=== PATIENT | female | born 1975 | race Caucasian/White ===

== ENCOUNTER 2016-07-11 15:13 | Emergency (ER) | payer OTHER ==
[~2016-07-11] VITALS: Ht 147.3 cm; Wt 280.0 kg
[~2016-07-11 15:13] MED LIST: ANTIVERT25 MG PO; ASPIR-LOW81 M1 PO; ASPIRIN EC325 MG PO; BACTRIM,SEPT1 TABLET PO; CIPRO500 MG PO; CLEOCIN300 MG PO; COLACE100 MG PO; CRESTOR10 MG PO; CYMBAL PO; CYMBALTA60 MG PO; ENALAPRIL-HCTZ1 EACH PO; ESCITALOPRAM OX10 MG PO; FIORICET 50-301 EACH PO; FIORICET,ESG1 TABLET PO; FLONASE16 G1 BOTH NARES; Fioricet,Esgic,Repan PO; HYDROCHLOROTH12.5 M3 PO; KLONOPIN0.5 M1 PO; KLONOPIN1 MG PO; LAMISIL250 MG PO; LASIX PO; LIDOCAINE20 MG/1 M5 MM; LO-DOSE ASPIRIN81 M2 PO; LOPRESSOR25 MG PO; LORTAB 5-325 M1 EACH PO; Lovaza PO; MEDROL DOSEPAK4 MG PO; METOPROLOL SUCC25 MG PO; MIRALAX17 GM PO; MOBIC15 MG PO; MONTELUKAST SOD10 MG PO; MOTRIN600 MG PO; MOTRIN800 MG PO; NAPROSYN500 MG PO; NAPROXEN500 MG PO; NEXIUM40 MG PO; NORCO 5/3251 TABLET PO; OMEPRAZOLE20 M2 PO; OMEPRAZOLE40 M1 PO; PEN-VEE K,VEET500 MG PO; PERCOCET 5/31 TABLET PO; PRINIVIL20 MG PO; PRINIVIL40 MG PO; PROzac PO; REGLAN10 MG PO; RELAFEN750 MG PO; TOPROL XL6.25 MG PO; TRICOR PO; ULTRACET1 TABLET PO; ULTRAM50 MG PO; VENTOLIN HFA18 GM IH; VICODIN,LORT1 TABLET PO; ZESTORETIC 10-1 EAC1 PO; ZESTRIL20 MG PO; ZESTRIL40 MG PO; ZOFRAN ODT4 MG PO; ZOFRAN8 MG PO; ZOLOFT100 MG PO; ZYRTEC10 M2 PO; [UNRECOGNIZED DRUG - OTHER]; [UNRECOGNIZED DRUG - REMARK]; [UNRECOGNIZED DRUG - REMARK]; [UNRECOGNIZED DRUG - REMARK]
[2016-07-11] MEDS ORDERED: PREDNISONE20 MG PO (17:19)
[2016-07-11] MEDS ORDERED: NAPROXEN500 MG PO (17:19)
[2016-07-11] MEDS ORDERED: LIDODERM 5% P1 PATCH TD (17:19)
[2016-07-11] MEDS ORDERED: FLEXERIL10 MG PO (17:19)
[2016-07-11 17:31] LABS: ADD MIUA? NO; BILIRUBIN NEGATIVE; BLOOD NEGATIVE; COLOR YELLOW ((YELLOW)); GLUCOSE (STRIP) NEGATIVE; KETONES NEGATIVE; LEUKOCYTES NEGATIVE; NITRITE NEGATIVE; PROTEIN (STRIP) NEGATIVE; SPECIFIC GRAVITY 1.015 (1.000-1.030); UCUL ADDED? NO; UROBILINOGEN 0.2 MG/DL (0.2-1.0)
[2016-07-11 17:40] VITALS: BP 139/61
== END 2016-07-11 17:41 | disposition home or self-care (01) ==
LOC: EME 15:13 → RME 15:13
PROVIDERS: Physician Assistant
DX: M54.42 Lumbago with sciatica, left side (principal); Z88.0 Allergy status to penicillin
CPT/HCPCS: 81003; 99281; 99284; J1885; J7512

== ENCOUNTER 2016-09-29 13:22 | Observation (INO) | payer OTHER ==
[~2016-09-29] VITALS: Ht 177.8 cm; Wt 123.3 kg
[~2016-09-29 13:22] MED LIST changes: +FLEXERIL10 MG PO; +LIDODERM 5% P1 PATCH TD; +PREDNISONE20 MG PO
[2016-09-29 13:41] LABS: HEMATOCRIT 39.5 % (36.0-46.0); MCH 31.5 PG (29.0-34.0); MCHC 33.9 G/DL (30.0-36.0); MCV 92.7 FL (83-99); MEAN PLAT.VOLUME 10.4 uM^3 (9.5-12.4); PLATELET COUNT 384 K/uL (156-360); RBC DIS.WIDTH-SD 44.6 % (39-53); RED BLOOD COUNT 4.26 M/uL (3.80-5.20); WHITE BLOOD COUNT 10.9 K/uL (4.1-10.2)
[2016-09-29 13:57] LABS: CHLORIDE 103 mEq/L (99-109); POTASSIUM 3.9 mEq/L (3.7-5.4); SODIUM 140 mEq/L (136-147)
[2016-09-29 13:58] LABS: GLUCOSE 84 mg/dL (70-99)
[2016-09-29 14:00] LABS: ANION GAP 9 MEQ/L (2-14)
[2016-09-29 14:02] LABS: GFR ESTIMATE (CALCULATED) > 59 mL/min/; TROP-I INTERPRETATION NEGATIVE; TROPONIN-I < 0.01 ng/mL (0.0-0.30)
[2016-09-29 14:03] LABS: UREA NITROGEN (BUN) 16 mg/dL (9-23)
[2016-09-29] MEDS ORDERED: DAILY VITE1 EAC1 PO (17:21)
[2016-09-29 18:21] VITALS: BP 136/85
== END 2016-09-29 18:36 | disposition left against medical advice (07) ==
LOC: EME 13:22 → EDOF 17:55
PROVIDERS: Emergency Medicine
DX: R07.89 Other chest pain (principal); R51 Headache; M54.2 Cervicalgia; R05 Cough; R68.83 Chills (without fever); M79.604 Pain in right leg; M79.605 Pain in left leg; F17.200 Nicotine dependence, unspecified, uncomplicated
CPT/HCPCS: 70450; 71020; 80048; 84484; 85027; 85379; 93005; 93971; 99281; 99284; G0378; J2270; J2405

== ENCOUNTER 2016-11-19 21:02 | Emergency (ER) | payer OTHER ==
[~2016-11-19] VITALS: Ht 147.3 cm; Wt 126.5 kg
[~2016-11-19 21:02] MED LIST changes: +DAILY VITE1 EAC1 PO
[2016-11-19 22:07] LABS: ADD MIUA? NO; BILIRUBIN NEGATIVE; BLOOD NEGATIVE; COLOR STRAW ((YELLOW)); GLUCOSE (STRIP) NEGATIVE; KETONES NEGATIVE; LEUKOCYTES NEGATIVE; NITRITE NEGATIVE; PROTEIN (STRIP) NEGATIVE; SPECIFIC GRAVITY 1.008 (1.000-1.030); UROBILINOGEN 0.2 MG/DL (0.2-1.0)
[2016-11-19 22:22] LABS: MCH 31.3 PG (29.0-34.0); MCHC 33.7 G/DL (30.0-36.0); MEAN PLAT.VOLUME 10.8 uM^3 (9.5-12.4); PLATELET COUNT 362 K/uL (156-360); RBC DIS.WIDTH-CV 13.5 % (11.8-14.6); RBC DIS.WIDTH-SD 45.9 % (39-53); RED BLOOD COUNT 4.41 M/uL (3.80-5.20); WHITE BLOOD COUNT 10.6 K/uL (4.1-10.2)
[2016-11-19 22:34] LABS: CHLORIDE 105 mEq/L (99-109); POTASSIUM 3.9 mEq/L (3.7-5.4); SODIUM 140 mEq/L (136-147)
[2016-11-19 22:36] LABS: GLUCOSE 93 mg/dL (70-99)
[2016-11-19 22:37] LABS: ANION GAP 10 MEQ/L (2-14)
[2016-11-19 22:40] LABS: GFR ESTIMATE (CALCULATED) > 59 mL/min/
[2016-11-19 22:41] LABS: UREA NITROGEN (BUN) 12 mg/dL (9-23)
[2016-11-19 22:43] LABS: TROP-I INTERPRETATION NEGATIVE; TROPONIN-I < 0.01 ng/mL (0.0-0.30)
[2016-11-20] MEDS ORDERED: REGLAN10 MG PO (00:44)
[2016-11-20] MEDS ORDERED: MOTRIN800 MG PO (00:44)
[2016-11-20] MEDS ORDERED: FIORICET 50-301 EACH PO (00:44)
[2016-11-20] MEDS ORDERED: VALIUM5 MG PO (00:47)
[2016-11-20 00:48] LABS: TROP-I INTERPRETATION NEGATIVE; TROPONIN-I < 0.01 ng/mL (0.0-0.30)
[2016-11-20 00:56] VITALS: BP 146/96
== END 2016-11-20 01:04 | disposition home or self-care (01) ==
LOC: EME 21:02
PROVIDERS: Physician Assistant
DX: G44.209 Tension-type headache, unspecified, not intractable (principal); M62.838 Other muscle spasm; R07.89 Other chest pain; R11.2 Nausea with vomiting, unspecified; I10 Essential (primary) hypertension; J45.909 Unspecified asthma, uncomplicated; F17.200 Nicotine dependence, unspecified, uncomplicated
CPT/HCPCS: 71020; 80048; 81003; 84484; 85027; 93005; 99281; 99285; J1200; J2765; J7030

== ENCOUNTER 2016-12-25 22:11 | Emergency (ER) | payer OTHER ==
[~2016-12-25] VITALS: Ht 147.3 cm; Wt 128.1 kg
[~2016-12-25 22:11] MED LIST changes: +VALIUM5 MG PO
[2016-12-25 22:18] VITALS: BP 129/79
[2016-12-25] MEDS ORDERED: ATARAX,VISTARIL50 MG PO (23:24)
== END 2016-12-25 23:46 | disposition home or self-care (01) ==
LOC: EME 22:11
DX: L29.9 Pruritus, unspecified (principal); R59.0 Localized enlarged lymph nodes; T43.226A Underdosing of selective serotonin reuptake inhibitors, initial encounter; T45.0X6A Underdosing of antiallergic and antiemetic drugs, initial encounter; Z91.128 Patient's intentional underdosing of medication regimen for other reason; E66.9 Obesity, unspecified; F32.9 Major depressive disorder, single episode, unspecified; I10 Essential (primary) hypertension; Z88.0 Allergy status to penicillin
CPT/HCPCS: 99281; 99284; Q0177

== ENCOUNTER 2017-03-21 08:02 | Day surgery (SDC) | payer OTHER ==
[~2017-03-21] VITALS: Ht 148.6 cm; Wt 128.4 kg
[~2017-03-21 08:02] MED LIST changes: +ATARAX,VISTARIL50 MG PO; +LEXAPRO10 MG PO; +VASERETIC 101 TABLET PO
== END 2017-03-21 10:00 | disposition home or self-care (01) ==
LOC: PAIN 08:02 → SDC 08:30 → PAIN 08:30
DX: R10.33 Periumbilical pain (principal); G62.9 Polyneuropathy, unspecified; G89.29 Other chronic pain; I10 Essential (primary) hypertension; F17.200 Nicotine dependence, unspecified, uncomplicated
CPT/HCPCS: J1100; J2250; J3010; S0020

== ENCOUNTER 2017-04-09 21:09 | Emergency (ER) | payer OTHER ==
[~2017-04-09] VITALS: Ht 147.3 cm; Wt 128.7 kg
[2017-04-09 21:37] LABS: ADD MIUA? NO; BILIRUBIN NEGATIVE; BLOOD NEGATIVE; COLOR YELLOW ((YELLOW)); GLUCOSE (STRIP) NEGATIVE; KETONES NEGATIVE; LEUKOCYTES NEGATIVE; NITRITE NEGATIVE; PROTEIN (STRIP) NEGATIVE; SPECIFIC GRAVITY 1.018 (1.000-1.030); UCUL ADDED? NO; UROBILINOGEN 0.2 MG/DL (0.2-1.0)
[2017-04-09 22:22] LABS: HEMATOCRIT 40.7 % (36.0-46.0); MCH 31.9 PG (29.0-34.0); MCHC 34.6 G/DL (30.0-36.0); MCV 92.1 FL (83-99); PLATELET COUNT 361 K/uL (156-360); RBC DIS.WIDTH-CV 13.4 % (11.8-14.6); RBC DIS.WIDTH-SD 46.2 % (39-53); RED BLOOD COUNT 4.42 M/uL (3.80-5.20); WHITE BLOOD COUNT 12.5 K/uL (4.1-10.2)
[2017-04-09 22:49] LABS: CHLORIDE 103 mEq/L (99-109); POTASSIUM 3.4 mEq/L (3.7-5.4); SODIUM 139 mEq/L (136-147)
[2017-04-09 22:52] LABS: ANION GAP 10 MEQ/L (2-14); GLUCOSE 111 mg/dL (70-99)
[2017-04-09 22:54] LABS: GFR ESTIMATE (CALCULATED) > 59 mL/min/
[2017-04-09 22:55] LABS: UREA NITROGEN (BUN) 11 mg/dL (9-23)
[2017-04-09 23:31] LABS: QUANTITATIVE HCG < 4.0 MIU/ML
[2017-04-10] MEDS ORDERED: MOTRIN600 MG PO (00:59)
[2017-04-10] MEDS ORDERED: ZITHROMAX Z-PA250 MG PO (00:59)
[2017-04-10] MEDS ORDERED: NORCO 5/3251 TABLET PO (00:59)
[2017-04-10 01:09] VITALS: BP 126/79
== END 2017-04-10 01:10 | disposition home or self-care (01) ==
LOC: EME 21:09
DX: S39.012A Strain of muscle, fascia and tendon of lower back, initial encounter (principal); R10.9 Unspecified abdominal pain; X58.XXXA Exposure to other specified factors, initial encounter; J45.909 Unspecified asthma, uncomplicated; K21.9 Gastro-esophageal reflux disease without esophagitis; F17.200 Nicotine dependence, unspecified, uncomplicated; Z88.0 Allergy status to penicillin
CPT/HCPCS: 71020; 80048; 81003; 84702; 85027; 99281; 99284; J1885

== ENCOUNTER 2017-04-12 08:36 | Emergency (ER) | payer OTHER ==
[~2017-04-12] VITALS: Ht 149.9 cm; Wt 129.0 kg
[~2017-04-12 08:36] MED LIST changes: +ZITHROMAX Z-PA250 MG PO
[2017-04-12] MEDS ORDERED: FLEXERIL10 MG PO (11:09)
[2017-04-12] MEDS ORDERED: TORADOL10 MG PO (11:09)
[2017-04-12 11:24] VITALS: BP 156/87
== END 2017-04-12 11:24 | disposition home or self-care (01) ==
LOC: EME 08:36
DX: S39.012A Strain of muscle, fascia and tendon of lower back, initial encounter (principal); X58.XXXA Exposure to other specified factors, initial encounter; K21.9 Gastro-esophageal reflux disease without esophagitis; J45.909 Unspecified asthma, uncomplicated; F17.200 Nicotine dependence, unspecified, uncomplicated; Z88.0 Allergy status to penicillin
CPT/HCPCS: 74176; 99281; 99284; J1885

== ENCOUNTER 2017-05-06 07:10 | Emergency (ER) | payer OTHER ==
[~2017-05-06] VITALS: Ht 147.3 cm; Wt 127.5 kg
[~2017-05-06 07:10] MED LIST changes: +TORADOL10 MG PO
[2017-05-06 08:44] LABS: INFLUENZA A VIRAL ANTIGEN NEGATIVE; INFLUENZA B VIRAL ANTIGEN NEGATIVE
[2017-05-06] MEDS ORDERED: VIBRAMYCIN100 MG PO (08:46)
[2017-05-06] MEDS ORDERED: NAPROSYN500 MG PO (08:46)
[2017-05-06 09:00] VITALS: BP 135/75
== END 2017-05-06 09:01 | disposition home or self-care (01) ==
LOC: EME 07:10
PROVIDERS: Nurse Practitioner Family
DX: J01.90 Acute sinusitis, unspecified (principal); R51 Headache; F17.200 Nicotine dependence, unspecified, uncomplicated; J45.909 Unspecified asthma, uncomplicated; K21.9 Gastro-esophageal reflux disease without esophagitis; Z88.0 Allergy status to penicillin
CPT/HCPCS: 87502; 99281; 99284

== ENCOUNTER 2017-06-11 15:59 | Emergency (ER) | payer OTHER ==
[~2017-06-11] VITALS: Ht 147.3 cm; Wt 126.6 kg
[~2017-06-11 15:59] MED LIST changes: +VIBRAMYCIN100 MG PO
[2017-06-11 16:29] LABS: MCH 32.4 PG (29.0-34.0); MCV 90.1 FL (83-99); MEAN PLAT.VOLUME 10.5 uM^3 (9.5-12.4); PLATELET COUNT 399 K/uL (156-360); RBC DIS.WIDTH-CV 13.2 % (11.8-14.6); RBC DIS.WIDTH-SD 43.2 % (39-53); RED BLOOD COUNT 4.66 M/uL (3.80-5.20); WHITE BLOOD COUNT 13.9 K/uL (4.1-10.2)
[2017-06-11 16:38] LABS: CHLORIDE 103 mEq/L (99-109); POTASSIUM 3.5 mEq/L (3.7-5.4); SODIUM 140 mEq/L (136-147)
[2017-06-11 16:40] LABS: GLUCOSE 106 mg/dL (70-99)
[2017-06-11 16:40] LABS: ADD MIUA? NO; BILIRUBIN NEGATIVE; BLOOD NEGATIVE; COLOR YELLOW ((YELLOW)); GLUCOSE (STRIP) NEGATIVE; KETONES NEGATIVE; LEUKOCYTES NEGATIVE; NITRITE NEGATIVE; PROTEIN (STRIP) NEGATIVE; SPECIFIC GRAVITY 1.021 (1.000-1.030); UCUL ADDED? NO; UROBILINOGEN 0.2 MG/DL (0.2-1.0)
[2017-06-11 16:41] LABS: ANION GAP 13 MEQ/L (2-14)
[2017-06-11 16:42] LABS: TOTAL BILIRUBIN 0.3 mg/dL (0.0-1.0)
[2017-06-11 16:43] LABS: ALKALINE PHOSPHATASE 81 IU/L (3-129)
[2017-06-11 16:44] LABS: GFR ESTIMATE (CALCULATED) > 59 mL/min/
[2017-06-11 16:45] LABS: UREA NITROGEN (BUN) 9 mg/dL (9-23)
[2017-06-11 16:52] LABS: QUANTITATIVE HCG < 4.0 MIU/ML
[2017-06-11] MEDS ORDERED: CIPRO500 MG PO (20:05)
[2017-06-11] MEDS ORDERED: FLAGYL500 MG PO (20:05)
[2017-06-11] MEDS ORDERED: ULTRAM50 MG PO (20:05)
[2017-06-11 20:19] VITALS: BP 152/90
== END 2017-06-11 20:15 | disposition home or self-care (01) ==
LOC: EME 15:59
DX: K57.92 Diverticulitis of intestine, part unspecified, without perforation or abscess without bleeding (principal); N83.209 Unspecified ovarian cyst, unspecified side; K21.9 Gastro-esophageal reflux disease without esophagitis; J45.909 Unspecified asthma, uncomplicated; I10 Essential (primary) hypertension; F17.200 Nicotine dependence, unspecified, uncomplicated; Z88.0 Allergy status to penicillin
CPT/HCPCS: 76856; 80053; 81003; 84702; 85027; 99281; 99284

== ENCOUNTER 2017-07-08 14:43 | Emergency (ER) | payer OTHER ==
[~2017-07-08] VITALS: Ht 147.3 cm; Wt 124.0 kg
[~2017-07-08 14:43] MED LIST changes: +FLAGYL500 MG PO
[2017-07-08 15:37] LABS: HEMATOCRIT 43.6 % (36.0-46.0); HEMOGLOBIN 15.1 G/DL (11.9-15.5); MCHC 34.6 G/DL (30.0-36.0); MCV 92.4 FL (83-99); PLATELET COUNT 399 K/uL (156-360); RBC DIS.WIDTH-CV 12.8 % (11.8-14.6); RBC DIS.WIDTH-SD 43.8 % (39-53); RED BLOOD COUNT 4.72 M/uL (3.80-5.20); WHITE BLOOD COUNT 8.4 K/uL (4.1-10.2)
[2017-07-08 15:43] LABS: APPEARANCE CLEAR ((CLEAR)); BILIRUBIN NEGATIVE; BLOOD NEGATIVE; COLOR YELLOW ((YELLOW)); GLUCOSE (STRIP) NEGATIVE; KETONES NEGATIVE; LEUKOCYTES NEGATIVE; NITRITE NEGATIVE; PROTEIN (STRIP) NEGATIVE; SPECIFIC GRAVITY 1.014 (1.000-1.030); UCUL ADDED? NO; UROBILINOGEN 0.2 MG/DL (0.2-1.0)
[2017-07-08 15:49] LABS: ALBUMIN 4.1 g/dL (3.2-4.8); CHLORIDE 100 mEq/L (99-109); POTASSIUM 3.4 mEq/L (3.7-5.4); SODIUM 140 mEq/L (136-147)
[2017-07-08 15:51] LABS: GLUCOSE 97 mg/dL (70-99)
[2017-07-08 15:52] LABS: TOTAL PROTEIN 7.7 g/dL (6.4-8.3)
[2017-07-08 15:53] LABS: TOTAL BILIRUBIN 0.3 mg/dL (0.0-1.0)
[2017-07-08 15:55] LABS: ALKALINE PHOSPHATASE 76 IU/L (3-129); GFR ESTIMATE (CALCULATED) > 59 mL/min/
[2017-07-08 15:56] LABS: UREA NITROGEN (BUN) 12 mg/dL (9-23)
[2017-07-08 15:57] LABS: AST (GOT) 20 IU/L (2-34)
[2017-07-08 15:58] LABS: ALT (GPT) 18 IU/L (3-49)
[2017-07-08 16:06] LABS: QUANTITATIVE HCG < 4.0 MIU/ML
[2017-07-08 16:51] LABS: LIPASE 29 U/L (1.0-51.0)
[2017-07-08] MEDS ORDERED: BENTYL20 MG PO (17:39)
[2017-07-08 18:12] VITALS: BP 121/60
== END 2017-07-08 18:12 | disposition home or self-care (01) ==
LOC: EME 14:43
DX: R10.12 Left upper quadrant pain (principal); J45.909 Unspecified asthma, uncomplicated; G43.909 Migraine, unspecified, not intractable, without status migrainosus; K21.9 Gastro-esophageal reflux disease without esophagitis; F41.9 Anxiety disorder, unspecified; I10 Essential (primary) hypertension; F32.9 Major depressive disorder, single episode, unspecified; F17.200 Nicotine dependence, unspecified, uncomplicated; Z88.0 Allergy status to penicillin; Z88.8 Allergy status to other drugs, medicaments and biological substances
CPT/HCPCS: 74176; 80053; 81003; 83690; 84702; 85027; 99281; 99284

== ENCOUNTER 2017-08-13 17:15 | Emergency (ER) | payer OTHER ==
[~2017-08-13] VITALS: Ht 147.3 cm; Wt 125.2 kg
[~2017-08-13 17:15] MED LIST changes: +BENTYL20 MG PO
[2017-08-13 17:49] LABS: HEMATOCRIT 42.2 % (36.0-46.0); HEMOGLOBIN 14.9 G/DL (11.9-15.5); MCH 32.7 PG (29.0-34.0); MCHC 35.3 G/DL (30.0-36.0); MCV 92.5 FL (83-99); PLATELET COUNT 349 K/uL (156-360); RBC DIS.WIDTH-CV 13.1 % (11.8-14.6); RBC DIS.WIDTH-SD 44.2 % (39-53); RED BLOOD COUNT 4.56 M/uL (3.80-5.20); WHITE BLOOD COUNT 10.3 K/uL (4.1-10.2)
[2017-08-13 18:09] LABS: TROP-I INTERPRETATION NEGATIVE; TROPONIN-I < 0.01 ng/mL (0.0-0.30)
[2017-08-13 18:10] LABS: CHLORIDE 102 MEQ/L (99-109); POTASSIUM 3.4 MEQ/L (3.7-5.4); SODIUM 139 MEQ/L (136-147)
[2017-08-13 18:16] LABS: CREATININE 0.8 MG/DL (0.6-1.3); GFR ESTIMATE (CALCULATED) > 59 mL/min/; GLUCOSE 83 mg/dL (70-99); UREA NITROGEN (BUN) 8 mg/dL (9-23)
[2017-08-13 21:13] LABS: TROP-I INTERPRETATION NEGATIVE; TROPONIN-I 0.01 ng/mL (0.0-0.30)
[2017-08-13 21:31] VITALS: BP 139/90
== END 2017-08-13 21:31 | disposition home or self-care (01) ==
LOC: EME 17:15
PROVIDERS: Physician Assistant
DX: R07.9 Chest pain, unspecified (principal); Z82.49 Family history of ischemic heart disease and other diseases of the circulatory system; F17.200 Nicotine dependence, unspecified, uncomplicated; J45.909 Unspecified asthma, uncomplicated; K21.9 Gastro-esophageal reflux disease without esophagitis; Z88.0 Allergy status to penicillin
CPT/HCPCS: 71046; 80048; 84484; 85027; 87502; 93005; 99281; 99285

== ENCOUNTER → 2017-09-01 | Outpatient (CLI) | payer OTHER ==
[~2017-09-01] VITALS: Ht 148.6 cm; Wt 126.6 kg
== END | disposition home or self-care (01) ==
LOC: AMB 13:30
DX: K62.5 Hemorrhage of anus and rectum (principal); K64.8 Other hemorrhoids; R10.32 Left lower quadrant pain; R19.7 Diarrhea, unspecified; R13.10 Dysphagia, unspecified; R11.2 Nausea with vomiting, unspecified; K21.9 Gastro-esophageal reflux disease without esophagitis; Z90.49 Acquired absence of other specified parts of digestive tract; E66.01 Morbid (severe) obesity due to excess calories; Z68.43 Body mass index [BMI] 50.0-59.9, adult; I10 Essential (primary) hypertension; J45.909 Unspecified asthma, uncomplicated; Z80.0 Family history of malignant neoplasm of digestive organs; F17.210 Nicotine dependence, cigarettes, uncomplicated; Z82.49 Family history of ischemic heart disease and other diseases of the circulatory system; Z88.0 Allergy status to penicillin
CPT/HCPCS: 88305; 88342 TC; J3010

== ENCOUNTER 2017-09-07 02:59 | Emergency (ER) | payer OTHER ==
[~2017-09-07] VITALS: Ht 147.3 cm; Wt 125.0 kg
[2017-09-07] MEDS ORDERED: ANTI-ITCH28 G1 TP (03:30)
[2017-09-07] MEDS ORDERED: BENADRYL25 MG PO (03:30)
[2017-09-07 03:58] VITALS: BP 149/91
== END 2017-09-07 04:00 | disposition home or self-care (01) ==
LOC: EME 02:59
DX: L30.9 Dermatitis, unspecified (principal); Z98.890 Other specified postprocedural states; I10 Essential (primary) hypertension; Z88.0 Allergy status to penicillin; F17.200 Nicotine dependence, unspecified, uncomplicated
CPT/HCPCS: 99281; 99283

== ENCOUNTER 2017-10-18 13:06 | Emergency (ER) | payer OTHER ==
[~2017-10-18] VITALS: Ht 147.3 cm; Wt 123.5 kg
[~2017-10-18 13:06] MED LIST changes: +ANTI-ITCH28 G1 TP; +BENADRYL25 MG PO
[2017-10-18 14:55] LABS: APPEARANCE SL.HAZY ((CLEAR)); BILIRUBIN NEGATIVE; BLOOD NEGATIVE; COLOR YELLOW ((YELLOW)); GLUCOSE (STRIP) NEGATIVE; KETONES NEGATIVE; LEUKOCYTES NEGATIVE; NITRITE NEGATIVE; PROTEIN (STRIP) NEGATIVE; SPECIFIC GRAVITY 1.019 (1.000-1.030); UROBILINOGEN 0.2 MG/DL (0.2-1.0)
[2017-10-18 15:09] LABS: BACTERIA NONE SEEN /HPF; EPITHELIAL CELLS RARE /HPF; HYALINE CASTS 0-5 /LPF; MUCUS TRACE /LPF; RED BLOOD CELLS 0-5 /HPF (0-5); UCUL ADDED? NO; WHITE BLOOD CELLS 0-5 /HPF (0-5)
[2017-10-18 15:15] LABS: HEMATOCRIT 38.9 % (36.0-46.0); HEMOGLOBIN 13.9 G/DL (11.9-15.5); MCH 32.6 PG (29.0-34.0); MCHC 35.7 G/DL (30.0-36.0); MCV 91.1 FL (83-99); PLATELET COUNT 370 K/uL (156-360); RBC DIS.WIDTH-CV 13.2 % (11.8-14.6); RBC DIS.WIDTH-SD 43.8 % (39-53); RED BLOOD COUNT 4.27 M/uL (3.80-5.20); WHITE BLOOD COUNT 8.1 K/uL (4.1-10.2)
[2017-10-18 15:30] LABS: ALBUMIN 3.7 g/dL (3.2-4.8); CHLORIDE 104 mEq/L (99-109); POTASSIUM 3.3 mEq/L (3.7-5.4); SODIUM 145 mEq/L (136-147)
[2017-10-18 15:32] LABS: GLUCOSE 99 mg/dL (70-99)
[2017-10-18 15:34] LABS: TOTAL BILIRUBIN 0.4 mg/dL (0.0-1.0)
[2017-10-18 15:35] LABS: SERUM ETHYL ALCOHOL 44 mg/dL
[2017-10-18 15:36] LABS: ALKALINE PHOSPHATASE 77 IU/L (3-129); CREATININE 0.8 mg/dL (0.6-1.3); GFR ESTIMATE (CALCULATED) > 59 mL/min/
[2017-10-18 15:37] LABS: AST (GOT) 22 IU/L (2-34); UREA NITROGEN (BUN) 8 mg/dL (9-23)
[2017-10-18 15:39] LABS: ALT (GPT) 17 IU/L (3-49)
[2017-10-18 15:46] LABS: QUANTITATIVE HCG < 4.0 MIU/ML
[2017-10-18] MEDS ORDERED: MOTRIN800 MG PO (17:02)
[2017-10-18 17:16] VITALS: BP 118/75
== END 2017-10-18 17:20 | disposition home or self-care (01) ==
LOC: EME 13:06
PROVIDERS: Nurse Practitioner Family
DX: R42 Dizziness and giddiness (principal); F17.200 Nicotine dependence, unspecified, uncomplicated; J45.909 Unspecified asthma, uncomplicated; K21.9 Gastro-esophageal reflux disease without esophagitis; Z88.0 Allergy status to penicillin
CPT/HCPCS: 70450; 71046; 80053; 81003; 84702; 85027; 93005; 99281; 99284; G0480

== ENCOUNTER 2017-11-07 16:30 | Emergency (ER) | payer OTHER ==
[~2017-11-07] VITALS: Ht 147.3 cm; Wt 133.6 kg
[2017-11-07 17:01] LABS: HEMATOCRIT 36.4 % (36.0-46.0); HEMOGLOBIN 12.4 G/DL (11.9-15.5); MCH 32.3 PG (29.0-34.0); MCHC 34.1 G/DL (30.0-36.0); MCV 94.8 FL (83-99); PLATELET COUNT 299 K/uL (156-360); RBC DIS.WIDTH-SD 48.3 % (39-53); RED BLOOD COUNT 3.84 M/uL (3.80-5.20); WHITE BLOOD COUNT 7.5 K/uL (4.1-10.2)
[2017-11-07 17:12] LABS: ALBUMIN 3.8 g/dL (3.2-4.8); CHLORIDE 110 mEq/L (99-109); POTASSIUM 3.5 mEq/L (3.7-5.4); SODIUM 144 mEq/L (136-147)
[2017-11-07 17:14] LABS: GLUCOSE 83 mg/dL (70-99)
[2017-11-07 17:15] LABS: TOTAL PROTEIN 6.9 g/dL (6.4-8.3)
[2017-11-07 17:16] LABS: TOTAL BILIRUBIN 0.2 mg/dL (0.0-1.0)
[2017-11-07 17:18] LABS: ALKALINE PHOSPHATASE 86 IU/L (3-129); CREATININE 0.8 mg/dL (0.6-1.3); GFR ESTIMATE (CALCULATED) > 59 mL/min/
[2017-11-07 17:19] LABS: UREA NITROGEN (BUN) 9 mg/dL (9-23)
[2017-11-07 17:20] LABS: AST (GOT) 13 IU/L (2-34)
[2017-11-07 17:21] LABS: ALT (GPT) 12 IU/L (3-49)
[2017-11-07 17:28] LABS: QUANTITATIVE HCG < 4.0 MIU/ML
[2017-11-07 17:37] LABS: APPEARANCE CLEAR ((CLEAR)); BILIRUBIN NEGATIVE; BLOOD NEGATIVE; COLOR YELLOW ((YELLOW)); GLUCOSE (STRIP) NEGATIVE; KETONES NEGATIVE; LEUKOCYTES NEGATIVE; NITRITE NEGATIVE; PROTEIN (STRIP) NEGATIVE; SPECIFIC GRAVITY 1.026 (1.000-1.030); UCUL ADDED? NO; UROBILINOGEN 0.2 MG/DL (0.2-1.0)
[2017-11-07] MEDS ORDERED: MOTRIN600 MG PO (18:21)
[2017-11-07 18:34] VITALS: BP 148/77
== END 2017-11-07 18:37 | disposition home or self-care (01) ==
LOC: EME 16:30 → EXP 16:30
DX: R10.9 Unspecified abdominal pain (principal); J45.909 Unspecified asthma, uncomplicated; K21.9 Gastro-esophageal reflux disease without esophagitis; Z88.0 Allergy status to penicillin; F17.200 Nicotine dependence, unspecified, uncomplicated
CPT/HCPCS: 74176; 80053; 81003; 84702; 85027; 99281; 99283; J1885

== ENCOUNTER 2017-11-26 19:31 | Observation (INO) | payer OTHER ==
[~2017-11-26] VITALS: Ht 147.3 cm; Wt 127.8 kg
[2017-11-26 20:35] LABS: HEMATOCRIT 43.3 % (36.0-46.0); HEMOGLOBIN 14.6 G/DL (11.9-15.5); MCH 31.9 PG (29.0-34.0); MCHC 33.7 G/DL (30.0-36.0); MCV 94.5 FL (83-99); PLATELET COUNT 376 K/uL (156-360); RBC DIS.WIDTH-CV 13.3 % (11.8-14.6); RBC DIS.WIDTH-SD 46.2 % (39-53); RED BLOOD COUNT 4.58 M/uL (3.80-5.20); WHITE BLOOD COUNT 11.5 K/uL (4.1-10.2)
[2017-11-26 20:46] LABS: CHLORIDE 105 mEq/L (99-109); POTASSIUM 3.9 mEq/L (3.7-5.4); SODIUM 142 mEq/L (136-147)
[2017-11-26 20:47] LABS: GLUCOSE 95 mg/dL (70-99)
[2017-11-26 20:51] LABS: CREATININE 0.8 mg/dL (0.6-1.3); GFR ESTIMATE (CALCULATED) > 59 mL/min/
[2017-11-26 20:52] LABS: UREA NITROGEN (BUN) 10 mg/dL (9-23)
[2017-11-26 20:56] LABS: TROP-I INTERPRETATION NEGATIVE; TROPONIN-I < 0.01 ng/mL (0.0-0.30)
[2017-11-26 21:15] LABS: SERUM ETHYL ALCOHOL < 10 mg/dL
[2017-11-26 22:56] LABS: APPEARANCE CLEAR ((CLEAR)); BILIRUBIN NEGATIVE; BLOOD NEGATIVE; COLOR YELLOW ((YELLOW)); GLUCOSE (STRIP) NEGATIVE; KETONES NEGATIVE; LEUKOCYTES NEGATIVE; NITRITE NEGATIVE; PROTEIN (STRIP) NEGATIVE; SPECIFIC GRAVITY 1.024 (1.000-1.030); UROBILINOGEN 0.2 MG/DL (0.2-1.0)
[2017-11-26 23:05] LABS: AMPHETAMINE NEGATIVE (500 ng/mL); BENZODIAZEPINES NEGATIVE (150 ng/mL); COCAINE NEGATIVE (150 ng/mL); METHAMPHETAMINE NEGATIVE (500 ng/mL); OPIATES (MORPHINE) NEGATIVE (100 ng/mL); PHENCYCLIDINE NEGATIVE (25 ng/mL); THC CANNABINOIDS NEGATIVE (50 ng/mL)
[2017-11-26 23:06] LABS: BARBITURATES NEGATIVE (200 ng/mL); BUPRENORPHINE NEGATIVE (10 ng/mL); METHADONE NEGATIVE (200 ng/mL); OXYCODONE NEGATIVE (100 ng/mL); PROPOXYPHENE NEGATIVE (300 ng/mL); TRICYCLIC ANTIDEPRESSANTS NEGATIVE (300 ng/mL)
[2017-11-27] MEDS ORDERED: ESCITALOPRAM OX10 MG PO (00:44)
[2017-11-27] MEDS ORDERED: ENALAPRIL MALEAT5 MG PO (00:45)
[2017-11-27] MEDS ORDERED: ENALAPRIL MALEA10 MG PO (00:45)
[2017-11-27] MEDS ORDERED: PANTOPRAZOLE SO40 MG PO (00:46)
[2017-11-27 03:14] VITALS: BP 143/83
[2017-11-27 05:57] LABS: CHLORIDE 109 MEQ/L (99-109); CREATININE 0.9 MG/DL (0.6-1.3); GFR ESTIMATE (CALCULATED) > 59 mL/min/; GLUCOSE 105 mg/dL (70-99); POTASSIUM 3.9 MEQ/L (3.7-5.4); SODIUM 140 MEQ/L (136-147); UREA NITROGEN (BUN) 13 mg/dL (9-23)
[2017-11-27 06:51] LABS: TROP-I INTERPRETATION NEGATIVE; TROPONIN-I < 0.01 ng/mL (0.0-0.30)
[2017-11-27 08:25] VITALS: BP 116/65; BP 6/65
[2017-11-27 11:25] VITALS: BP 125/68
[2017-11-27 12:18] LABS: BASOPHIL (%) 0.8 % (0-1); BASOPHIL COUNT 0.1 K/uL (0-0.1); EOSINOPHIL (%) 1.9 % (0-5); EOSINOPHIL COUNT 0.1 K/uL (0-0.3); HEMATOCRIT 40.9 % (36.0-46.0); HEMOGLOBIN 13.5 G/DL (11.9-15.5); IMMATURE GRANULOCYTE (%) 0.2 % (0.0-0.7); LYMPHOCYTE (%) 44.4 % (15-42); LYMPHOCYTE COUNT 2.8 K/uL (1.0-2.8); MCH 31.3 PG (29.0-34.0); MCV 94.7 FL (83-99); MONOCYTE (%) 6.9 % (3-12); MONOCYTE COUNT 0.4 K/uL (0-0.8); NEUTROPHIL (%) 45.8 % (45-76); NEUTROPHIL COUNT 2.9 K/uL (1.8-6.4); PLATELET COUNT 340 K/uL (156-360); RBC DIS.WIDTH-CV 13.2 % (11.8-14.6); RBC DIS.WIDTH-SD 46.6 % (39-53); RED BLOOD COUNT 4.32 M/uL (3.80-5.20); WHITE BLOOD COUNT 6.2 K/uL (4.1-10.2)
[2017-11-27 12:36] LABS: TROP-I INTERPRETATION NEGATIVE; TROPONIN-I 0.01 ng/mL (0.0-0.30)
[2017-11-27 15:47] VITALS: BP 119/65
== END 2017-11-27 18:08 | disposition home or self-care (01) ==
LOC: EME 19:31 → EDOF 11-27 01:20 → ENRESERV 11-27 01:21 → 4SOUTH 11-27 03:06
PROVIDERS: Emergency Medicine; Internal Medicine
DX: R07.89 Other chest pain (principal); I11.9 Hypertensive heart disease without heart failure; E78.5 Hyperlipidemia, unspecified; F41.9 Anxiety disorder, unspecified; F32.9 Major depressive disorder, single episode, unspecified; G43.909 Migraine, unspecified, not intractable, without status migrainosus; R00.1 Bradycardia, unspecified; E66.01 Morbid (severe) obesity due to excess calories; Z82.49 Family history of ischemic heart disease and other diseases of the circulatory system; Z88.0 Allergy status to penicillin; Z72.0 Tobacco use
CPT/HCPCS: 70450; 71046; 80048; 81003; 84484; 85025; 85027; 93005; 99202; 99281; 99285; G0378; G0480; J1650

== ENCOUNTER 2017-12-08 07:06 | Day surgery (SDC) | payer OTHER ==
[~2017-12-08] VITALS: Ht 148.6 cm; Wt 128.0 kg
[~2017-12-08 07:06] MED LIST changes: +ENALAPRIL MALEA10 MG PO; +ENALAPRIL MALEAT5 MG PO; +PANTOPRAZOLE SO40 MG PO
== END 2017-12-08 12:45 | disposition home or self-care (01) ==
LOC: CATH 07:06
PROC: 4A023N7 Measurement of Cardiac Sampling and Pressure, Left Heart, Percutaneous Approach (ICD-10-PCS; principal; 2017-12-08)
PROC: B2151ZZ Fluoroscopy of Left Heart using Low Osmolar Contrast (ICD-10-PCS; principal; 2017-12-08)
PROC: B2111ZZ Fluoroscopy of Multiple Coronary Arteries using Low Osmolar Contrast (ICD-10-PCS; principal; 2017-12-08)
DX: R07.89 Other chest pain (principal); I10 Essential (primary) hypertension; E78.5 Hyperlipidemia, unspecified; E66.01 Morbid (severe) obesity due to excess calories; Z82.49 Family history of ischemic heart disease and other diseases of the circulatory system; Z68.43 Body mass index [BMI] 50.0-59.9, adult
CPT/HCPCS: 93005; C1769; C1887; J1644; J2250; J3010

== ENCOUNTER 2017-12-23 04:40 | Emergency (ER) | payer OTHER ==
[~2017-12-23] VITALS: Ht 147.3 cm; Wt 129.1 kg
[2017-12-23 06:45] LABS: HEMATOCRIT 37.6 % (36.0-46.0); HEMOGLOBIN 12.8 G/DL (11.9-15.5); MCH 31.9 PG (29.0-34.0); MCV 93.8 FL (83-99); PLATELET COUNT 276 K/uL (156-360); RBC DIS.WIDTH-CV 13.6 % (11.8-14.6); RBC DIS.WIDTH-SD 46.5 % (39-53); RED BLOOD COUNT 4.01 M/uL (3.80-5.20); WHITE BLOOD COUNT 8.5 K/uL (4.1-10.2)
[2017-12-23 06:53] LABS: ALBUMIN 3.5 g/dL (3.2-4.8); CHLORIDE 107 mEq/L (99-109); POTASSIUM 3.8 mEq/L (3.7-5.4); SODIUM 138 mEq/L (136-147)
[2017-12-23 06:55] LABS: GLUCOSE 96 mg/dL (70-99); TOTAL PROTEIN 6.4 g/dL (6.4-8.3)
[2017-12-23 06:57] LABS: TOTAL BILIRUBIN 0.2 mg/dL (0.0-1.0)
[2017-12-23 06:58] LABS: ALKALINE PHOSPHATASE 78 IU/L (3-129)
[2017-12-23 06:59] LABS: CREATININE 0.7 mg/dL (0.6-1.3); GFR ESTIMATE (CALCULATED) > 59 mL/min/
[2017-12-23 07:00] LABS: AST (GOT) 13 IU/L (2-34); UREA NITROGEN (BUN) 11 mg/dL (9-23)
[2017-12-23 07:02] LABS: ALT (GPT) 14 IU/L (3-49); LIPASE 42 U/L (1.0-51.0)
[2017-12-23 08:21] LABS: APPEARANCE CLEAR ((CLEAR)); BILIRUBIN NEGATIVE; BLOOD NEGATIVE; COLOR STRAW ((YELLOW)); GLUCOSE (STRIP) NEGATIVE; KETONES NEGATIVE; LEUKOCYTES NEGATIVE; NITRITE NEGATIVE; PROTEIN (STRIP) NEGATIVE; SPECIFIC GRAVITY 1.029 (1.000-1.030); UCUL ADDED? NO; UROBILINOGEN 0.2 MG/DL (0.2-1.0)
[2017-12-23] MEDS ORDERED: PERCOCET 5/31 TABLET PO (08:51)
[2017-12-23 09:49] VITALS: BP 140/89
== END 2017-12-23 09:52 | disposition home or self-care (01) ==
LOC: EME 04:40
PROVIDERS: Emergency Medicine
DX: K43.9 Ventral hernia without obstruction or gangrene (principal); I10 Essential (primary) hypertension; G43.909 Migraine, unspecified, not intractable, without status migrainosus; F17.200 Nicotine dependence, unspecified, uncomplicated; Z87.19 Personal history of other diseases of the digestive system; Z90.49 Acquired absence of other specified parts of digestive tract; Z88.0 Allergy status to penicillin; Z88.8 Allergy status to other drugs, medicaments and biological substances
CPT/HCPCS: 74177; 80053; 81003; 81025; 83690; 85027; 99281; 99285; J3010; J7030

== ENCOUNTER 2018-01-09 09:03 | Day surgery (SDC) | payer OTHER ==
[~2018-01-09] VITALS: Ht 148.6 cm; Wt 128.3 kg
[2018-01-09 09:30] VITALS: BP 156/87
[2018-01-09] MEDS ORDERED: PERCOCET 5/31 TABLET PO ×2 (13:01→13:03)
[2018-01-09 14:05] VITALS: BP 130/70
[2018-01-09 15:05] VITALS: BP 129/69
== END 2018-01-09 15:40 | disposition home or self-care (01) ==
LOC: SDC 09:03
PROC: 0DNW4ZZ Release Peritoneum, Percutaneous Endoscopic Approach (ICD-10-PCS; principal; 2018-01-09)
PROC: 0WQF4ZZ Repair Abdominal Wall, Percutaneous Endoscopic Approach (ICD-10-PCS; principal; 2018-01-09)
DX: K43.9 Ventral hernia without obstruction or gangrene (principal); I10 Essential (primary) hypertension; K21.9 Gastro-esophageal reflux disease without esophagitis; R00.1 Bradycardia, unspecified; E66.01 Morbid (severe) obesity due to excess calories; Z68.43 Body mass index [BMI] 50.0-59.9, adult; K66.0 Peritoneal adhesions (postprocedural) (postinfection); Z88.0 Allergy status to penicillin
CPT/HCPCS: J0330; J1100; J1170; J1885; J2250; J2405; J2710; J3010; J7120; J7643; Q0175

== ENCOUNTER 2018-01-21 11:58 | Emergency (ER) | payer OTHER ==
[~2018-01-21] VITALS: Ht 147.3 cm; Wt 128.6 kg
[2018-01-21 12:10] VITALS: BP 164/90
[2018-01-21] MEDS ORDERED: NORCO 5/3251 TABLET PO (13:14)
[2018-01-21] MEDS ORDERED: CLEOCIN300 MG PO (13:14)
== END 2018-01-21 13:49 | disposition home or self-care (01) ==
LOC: EME 11:58
DX: K03.81 Cracked tooth (principal); F17.200 Nicotine dependence, unspecified, uncomplicated; Z88.0 Allergy status to penicillin
CPT/HCPCS: 99281; 99284

== ENCOUNTER 2018-02-03 03:47 | Emergency (ER) | payer OTHER ==
[~2018-02-03] VITALS: Ht 147.3 cm; Wt 127.6 kg
[2018-02-03 03:49] VITALS: BP 174/114
== END 2018-02-03 05:41 | disposition home or self-care (01) ==
LOC: EME 03:47
DX: L30.9 Dermatitis, unspecified (principal); F17.200 Nicotine dependence, unspecified, uncomplicated; Z88.0 Allergy status to penicillin; Z88.8 Allergy status to other drugs, medicaments and biological substances
CPT/HCPCS: 99281; 99283